=== PATIENT | female | born 1925 | race Caucasian/White ===

== ENCOUNTER → 2016-08-10 | Outpatient (CLI) | payer MEDICARE, BC, MEDICAID ==
[~2016-08-10] MED LIST: AVALIDE 12.5 MG1 TA1 PO; AVALIDE PO; BUMEX 1MG TA1 MG/TA1 PO; CALCIUM 600-D 61 TAB PO; CALCIUM CARBON500 M1 PO; CEPHALEXIN500 M1 PO; DAILY MULTIPLE1 TAB PO; IMODIUM AD1 MG/5 ML PO; KLOR-CON 88 MEQ PO; LASIX 40MG TABL40 MG PO; LEVAQUIN 5500 MG/TA1 PO; MOBIC 7.5MG7.5 MG PO; MULTI VITAMINS1 TAB PO; NORCO 325 MG-51 TAB PO; NORVASC2.5 MG PO; PRILOSEC 20MG20 MG PO; REGLAN 10MG10 MG/TAB PO; REMERON 15M15 MG/TA1 PO; SIMVISTATIN; ULTRAM 50MG TAB50 MG PO; VITAMIN; WARFARIN SODIUM2 MG PO; ZOCOR 20MG20 MG PO; ZOCOR PO; ZOLOFT 50MG50 MG PO
[2016-08-10 23:00] LABS: BASO % 0.5 % (0.0-2.0); EOS # 0.1 (0.0-0.7); EOS % 0.9 % (0-4.0); GRAN # 3.5 (1.4-6.5); GRAN % 61.3 % (42.2-75.2); HEMATOCRIT 36.7 % (37.0-47.0); HEMOGLOBIN 11.4 g/dl (12.5-16.0); LYMPH # 1.6 (1.2-3.4); LYMPH % 26.9 % (20.0-51.0); MEAN CELL VOLUME 101 fl (80.0-100.0); MEAN CORPUSCULAR HEMOGLOBIN 31 pg (27.0-31.0); MEAN CORPUSCULAR HGB CONC 31 g/dl (33.0-37.0); MEAN PLATELET VOLUME 9.6 fl (7.4-10.4); MONO # 0.6 (0.1-0.6); MONO % 9.9 % (1.7-9.3); PLATELET COUNT 254 K/mm3 (130-400); RED BLOOD COUNT 3.62 M/mm3 (4.10-5.30); REDCELL DISTRIBUTION WIDTH-CV 12.7 % (11.5-14.5); WHITE BLOOD COUNT 5.8 K/mm3 (4.8-10.8)
[2016-08-10 23:01] LABS: CREATININE, serum 1.59 mg/dL (0.52-1.25); POTASSIUM 4.5 mmol/L (3.4-5.0)
== END ==
LOC: ZCOL.LAB 22:58
PROVIDERS: Internal Medicine
DX: I10 Essential (primary) hypertension (principal)

== ENCOUNTER 2016-11-30 15:54 | Emergency (ER) | payer MEDICARE, BC, MEDICAID ==
[~2016-11-30] VITALS: Ht 154.9 cm; Wt 72.7 kg
[~2016-11-30 15:54] MED LIST changes: -CALCIUM 600-D 61 TAB PO; -CEPHALEXIN500 M1 PO; -IMODIUM AD1 MG/5 ML PO; -MOBIC 7.5MG7.5 MG PO; -MULTI VITAMINS1 TAB PO; -REMERON 15M15 MG/TA1 PO; -ULTRAM 50MG TAB50 MG PO; -ZOLOFT 50MG50 MG PO
[2016-11-30 15:57] VITALS: BP 176/65; TEMP 97.8
[2016-11-30] MEDS ORDERED: CALCIUM 600-D 61 TAB PO (16:12)
[2016-11-30] MEDS ORDERED: NORVASC2.5 MG PO (16:12)
[2016-11-30] MEDS ORDERED: MULTI VITAMINS1 TAB PO (16:13)
[2016-11-30] MEDS ORDERED: IMODIUM AD1 MG/5 ML PO (16:14)
[2016-11-30] MEDS ORDERED: LASIX 40MG TABL40 MG PO (16:14)
[2016-11-30] MEDS ORDERED: REMERON 15M15 MG/TA1 PO (16:17)
[2016-11-30] MEDS ORDERED: ULTRAM 50MG TAB50 MG PO (16:18)
[2016-11-30] MEDS ORDERED: ZOLOFT 50MG50 MG PO (16:18)
[2016-11-30] MEDS ORDERED: MOBIC 7.5MG7.5 MG PO (16:20)
[2016-11-30 16:54] LABS: BASO % 0.6 % (0.0-2.0); EOS # 0.1 (0.0-0.7); EOS % 1.2 % (0-4.0); GRAN # 3.1 (1.4-6.5); GRAN % 60.7 % (42.2-75.2); LYMPH # 1.3 (1.2-3.4); LYMPH % 25.4 % (20.0-51.0); MEAN CELL VOLUME 101 fl (80.0-100.0); MEAN CORPUSCULAR HGB CONC 32 g/dl (33.0-37.0); MEAN PLATELET VOLUME 9.3 fl (7.4-10.4); MONO # 0.6 (0.1-0.6); MONO % 11.9 % (1.7-9.3); PLATELET COUNT 223 K/mm3 (130-400); RED BLOOD COUNT 3.52 M/mm3 (4.10-5.30); REDCELL DISTRIBUTION WIDTH-CV 12.7 % (11.5-14.5); WHITE BLOOD COUNT 5.1 K/mm3 (4.8-10.8)
[2016-11-30 16:56] LABS: HEMATOCRIT 35.4 % (37.0-47.0); HEMOGLOBIN 11.3 g/dl (12.5-16.0); MEAN CORPUSCULAR HEMOGLOBIN 32 pg (27.0-31.0)
[2016-11-30 17:05] LABS: INR 2.8 (0.8-3.0); PROTHROMBIN TIME 32.7 SECONDS (9.7-12.8)
[2016-11-30 17:07] LABS: PARTIAL THROMBOPLASTIN TIME 42.3 SECONDS (26.0-37.0)
[2016-11-30 17:19] LABS: ADJUSTED CALCIUM 9.7 mg/dL (8.4-10.2); ALBUMIN 4.2 gm/dL (3.5-5.0); BILIRUBIN,TOTAL 0.5 mg/dL (0.0-1.0); CALCIUM 9.9 mg/dL (8.4-10.2); CREATININE, serum 1.95 mg/dL (0.52-1.25); POTASSIUM 4.5 mmol/L (3.4-5.0); TOTAL PROTEIN 6.8 gm/dL (6.4-8.2)
[2016-11-30 17:31] LABS: TROPONIN-I 0.016 ng/mL (0.000-0.034)
[2016-11-30 18:00] LABS: HYALINE CAST >12 /lpf; PH 5 (5-8); SQUAMOUS EPITHELIAL 0-2 /hpf; URINE APPEARANCE Clear; URINE BACTERIA Rare /hpf; URINE BILIRUBIN Negative (NEGATIVE); URINE BLOOD Negative (NEGATIVE); URINE COLOR Yellow; URINE GLUCOSE Negative (NEGATIVE); URINE KETONE Negative (NEGATIVE); URINE UROBILINOGEN Negative (NEGATIVE)
[2016-11-30] MEDS ORDERED: CEPHALEXIN500 M1 PO (18:47)
[2016-11-30 19:02] VITALS: PULSE 71
== END 2016-11-30 19:02 | disposition home or self-care (01) ==
LOC: COL.ER 15:54
PROVIDERS: Emergency Medicine
DX: S01.01XA Laceration without foreign body of scalp, initial encounter (principal); R79.89 Other specified abnormal findings of blood chemistry; I10 Essential (primary) hypertension; E78.5 Hyperlipidemia, unspecified; Z23 Encounter for immunization; Z86.73 Personal history of transient ischemic attack (TIA), and cerebral infarction without residual deficits; Z87.19 Personal history of other diseases of the digestive system; W01.0XXA Fall on same level from slipping, tripping and stumbling without subsequent striking against object, initial encounter; Y92.009 Unspecified place in unspecified non-institutional (private) residence as the place of occurrence of the external cause
CPT/HCPCS: J2405

== ENCOUNTER → 2016-12-06 | Outpatient (CLI) | payer MEDICARE, BC, MEDICAID ==
[~2016-12-06] MED LIST changes: +CALCIUM 600-D 61 TAB PO; +CEPHALEXIN500 M1 PO; +IMODIUM AD1 MG/5 ML PO; +MOBIC 7.5MG7.5 MG PO; +MULTI VITAMINS1 TAB PO; +REMERON 15M15 MG/TA1 PO; +ULTRAM 50MG TAB50 MG PO; +ZOLOFT 50MG50 MG PO
[2016-12-07 10:16] LABS: CALCIUM 10.5 mg/dL (8.4-10.2); CREATININE, serum 1.46 mg/dL (0.52-1.25); POTASSIUM 4.6 mmol/L (3.4-5.0)
== END ==
LOC: ZCOL.LAB 13:58
PROVIDERS: Internal Medicine
DX: I10 Essential (primary) hypertension (principal)

== ENCOUNTER → 2016-12-21 | Outpatient (CLI) | payer MEDICARE, BC, MEDICAID ==
[2016-12-21 11:43] LABS: COLLECTION METHOD CLEAN CATCH
[2016-12-21 11:55] LABS: MUCOUS Present /lpf; PH 5 (5-8); SQUAMOUS EPITHELIAL None Seen /hpf; URINE APPEARANCE Clear; URINE BACTERIA Rare /hpf; URINE BILIRUBIN Negative (NEGATIVE); URINE BLOOD Negative (NEGATIVE); URINE COLOR Yellow; URINE GLUCOSE Negative (NEGATIVE); URINE KETONE Negative (NEGATIVE); URINE LEUKOCYTE ESTERASE Trace (NEGATIVE); URINE PROTEIN(semi-quant) Negative (NEGATIVE); URINE RBC 0-2 /hpf; URINE UROBILINOGEN Negative (NEGATIVE)
== END ==
LOC: ZCOL.LAB 11:41
PROVIDERS: Internal Medicine
DX: Z01.89 Encounter for other specified special examinations (principal)

== ENCOUNTER → 2017-01-26 | Outpatient (CLI) | payer MEDICARE, BC, MEDICAID ==
[2017-01-26 15:38] LABS: INR 1.8 (0.8-3.0); PROTHROMBIN TIME 20.9 SECONDS (9.7-12.8)
== END ==
LOC: ZCOL.LAB 15:23
PROVIDERS: Internal Medicine
DX: I48.0 Paroxysmal atrial fibrillation (principal)

== ENCOUNTER → 2017-02-16 | Outpatient (CLI) | payer MEDICARE, BC, MEDICAID ==
[2017-02-16 13:43] LABS: INR 2.6 (0.8-3.0); PROTHROMBIN TIME 30.1 SECONDS (9.7-12.8)
== END ==
LOC: ZCOL.LAB 13:30
PROVIDERS: Internal Medicine
DX: Z86.73 Personal history of transient ischemic attack (TIA), and cerebral infarction without residual deficits (principal)

== ENCOUNTER → 2017-03-17 | Outpatient (CLI) | payer MEDICARE, BC, MEDICAID ==
[2017-03-17 11:52] LABS: BASO # 0.1 (0.0-0.2); BASO % 1.1 % (0.0-2.0); EOS # 0.1 (0.0-0.7); EOS % 1.7 % (0-4.0); GRAN # 2.7 (1.4-6.5); GRAN % 50.2 % (42.2-75.2); LYMPH # 2.1 (1.2-3.4); LYMPH % 37.9 % (20.0-51.0); MEAN CELL VOLUME 100 fl (80.0-100.0); MEAN CORPUSCULAR HGB CONC 31 g/dl (33.0-37.0); MEAN PLATELET VOLUME 10.2 fl (7.4-10.4); MONO # 0.5 (0.1-0.6); MONO % 8.7 % (1.7-9.3); PLATELET COUNT 292 K/mm3 (130-400); RED BLOOD COUNT 3.68 M/mm3 (4.10-5.30); REDCELL DISTRIBUTION WIDTH-CV 13.1 % (11.5-14.5)
[2017-03-17 12:00] LABS: ALBUMIN 4.5 gm/dL (3.5-5.0); BILIRUBIN,TOTAL 0.4 mg/dL (0.0-1.0); CALCIUM 10.6 mg/dL (8.4-10.2); CHOLESTEROL RISK RATIO 4.6; CREATININE, serum 1.68 mg/dL (0.52-1.25); POTASSIUM 4.2 mmol/L (3.4-5.0); TOTAL PROTEIN 7.6 gm/dL (6.4-8.2)
[2017-03-17 12:09] LABS: HEMATOCRIT 36.9 % (37.0-47.0); HEMOGLOBIN 11.5 g/dl (12.5-16.0); MEAN CORPUSCULAR HEMOGLOBIN 31 pg (27.0-31.0)
[2017-03-17 12:14] LABS: INR 2.5 (0.8-3.0)
[2017-03-17 12:16] LABS: THYROXINE (T4)-TOTAL 6.7 ug/dL (5.5-11.0)
[2017-03-17 12:30] LABS: THYROID STIMULATING HORMONE 3.67 uIU/mL (0.465-4.680)
[2017-03-17 13:45] LABS: COLLECTION METHOD CLEAN CATCH
[2017-03-17 13:58] LABS: PH 5 (5-8); SQUAMOUS EPITHELIAL 0-2 /hpf; URINE APPEARANCE Hazy; URINE BACTERIA Rare /hpf; URINE BILIRUBIN Negative (NEGATIVE); URINE BLOOD Negative (NEGATIVE); URINE COLOR Yellow; URINE GLUCOSE Negative (NEGATIVE); URINE KETONE Negative (NEGATIVE); URINE LEUKOCYTE ESTERASE 2+ (NEGATIVE); URINE NITRATE Negative (NEGATIVE); URINE PROTEIN(semi-quant) Negative (NEGATIVE); URINE RBC 0-2 /hpf; URINE UROBILINOGEN Negative (NEGATIVE)
== END ==
LOC: ZCOL.LAB 11:22
PROVIDERS: Internal Medicine
DX: E03.9 Hypothyroidism, unspecified (principal); I10 Essential (primary) hypertension; I48.0 Paroxysmal atrial fibrillation; E78.5 Hyperlipidemia, unspecified

== ENCOUNTER → 2017-05-12 | Outpatient (CLI) | payer MEDICARE, BC, MEDICAID ==
[2017-05-12 13:56] LABS: INR 2.3 (0.8-3.0)
== END ==
LOC: ZCOL.LAB 13:28
PROVIDERS: Internal Medicine
DX: Z79.01 Long term (current) use of anticoagulants (principal)

== ENCOUNTER → 2017-07-08 | Outpatient (CLI) | payer MEDICARE, BC, MEDICAID ==
[2017-07-08 15:21] LABS: INR 1.4 (0.8-3.0); PROTHROMBIN TIME 16.1 SECONDS (9.7-12.8)
== END ==
LOC: ZCOL.LAB 15:05
PROVIDERS: Internal Medicine
DX: Z86.73 Personal history of transient ischemic attack (TIA), and cerebral infarction without residual deficits (principal)

== ENCOUNTER → 2017-07-18 | Outpatient (CLI) | payer MEDICARE, BC, MEDICAID ==
[2017-07-18 14:55] LABS: PROTHROMBIN TIME 45.4 SECONDS (9.7-12.8)
== END ==
LOC: ZCOL.LAB 14:23
PROVIDERS: Internal Medicine
DX: Z86.73 Personal history of transient ischemic attack (TIA), and cerebral infarction without residual deficits (principal)

== ENCOUNTER → 2017-07-22 | Outpatient (REF) ==
[2017-07-22 15:37] LABS: INR 3.5 (0.8-3.0); PROTHROMBIN TIME 40.3 SECONDS (9.7-12.8)
== END ==
LOC: ZLAB.WCH
PROVIDERS: Internal Medicine
DX: Z01.89 Encounter for other specified special examinations (principal)

== ENCOUNTER → 2017-07-29 | Outpatient (CLI) | payer MEDICARE, BC, MEDICAID ==
[2017-07-29 15:30] LABS: INR 2.6 (0.8-3.0); PROTHROMBIN TIME 29.6 SECONDS (9.7-12.8)
== END ==
LOC: ZCOL.LAB 14:58
PROVIDERS: Internal Medicine
DX: Z86.73 Personal history of transient ischemic attack (TIA), and cerebral infarction without residual deficits (principal)

== ENCOUNTER → 2017-08-15 | Outpatient (CLI) | payer MEDICARE, BC, MEDICAID ==
[2017-08-15 11:41] LABS: INR 3.7 (0.8-3.0); PROTHROMBIN TIME 42.4 SECONDS (9.7-12.8)
== END ==
LOC: ZCOL.LAB 11:28
PROVIDERS: Internal Medicine
DX: Z86.73 Personal history of transient ischemic attack (TIA), and cerebral infarction without residual deficits (principal)

== ENCOUNTER → 2017-08-22 | Outpatient (CLI) | payer MEDICARE, BC, MEDICAID ==
[2017-08-22 16:44] LABS: INR 2.1 (0.8-3.0); PROTHROMBIN TIME 24.3 SECONDS (9.7-12.8)
== END ==
LOC: ZCOL.LAB 16:32
PROVIDERS: Internal Medicine
DX: Z86.73 Personal history of transient ischemic attack (TIA), and cerebral infarction without residual deficits (principal)

== ENCOUNTER → 2017-08-31 | Outpatient (CLI) | payer MEDICARE, BC, MEDICAID | LOC: ZCOL.LAB 11:23 | DX: Z86.73 Personal history of transient ischemic attack (TIA), and cerebral infarction without residual deficits (principal) ==

== ENCOUNTER → 2017-09-02 | Outpatient (CLI) | payer MEDICARE, BC, MEDICAID ==
[2017-09-02 14:38] LABS: INR 2.5 (0.8-3.0); PROTHROMBIN TIME 28.8 SECONDS (9.7-12.8)
== END ==
LOC: ZCOL.LAB 14:06
PROVIDERS: Internal Medicine
DX: Z86.73 Personal history of transient ischemic attack (TIA), and cerebral infarction without residual deficits (principal)